=== PATIENT | female | born 1990 | race Caucasian/White ===

== ENCOUNTER 2016-09-26 08:57 | Emergency (ER) | payer MEDICAID ==
[~2016-09-26] VITALS: Wt 72.7 kg
[~2016-09-26 08:57] MED LIST: IBUP-1542 PO; NITR-58 PO; SELE118S2 TOP
[2016-09-26 09:04] VITALS: Wt 72.7 kg
--- NOTE | 2016-09-26 09:20 | ERD ---
ER Documentation Chief Complaint Date/Time DATE: 09/26/16 TIME: 09:17 Chief Complaint slamned r. ring finger in car door. uto bp x2 HPI Is a 26-year-old female who presents to the emergency department today complaining of right hand fourth finger pain after slamming in a car door earlier this morning. States that she had previous trauma on it one year ago and did something similar but never went to a doctor. She has not taken a medication for the pain. Denies any fevers or chills. ROS All systems reviewed and are negative except as per history of present illness. Medications Home Meds Active Scripts Naproxen* (Naprosyn*) 500 Mg Tablet, 500 MG PO BID Y for PAIN AND/OR INFLAMMATION, #30 TAB Prov:NASIMA KUHN PA-C 09/26/16 Tramadol HCl (Tramadol HCl) 50 Mg Tablet, 50 MG PO Q4 Y for PAIN, #20 TAB Prov:NASIMA KUHN PA-C 09/26/16 Selenium Sulfide* (Selenium Sulfide*) 118 Ml Shampoo, 1 APPLIC TOP DAILY for 7 Days, #120 ML Prov:GIULIA GRUBER POULTRY INSPECTOR 12/17/15 Nitrofurantoin Monohyd Macrocr* (Macrobid*) 100 Mg Capsr, 100 MG PO HS for 7 Days, CAP Prov:MANAGUELOD,GUSTABO P POULTRY INSPECTOR 11/22/15 Ibuprofen* (Motrin*) 600 Mg Tab, 600 MG PO Q6, #30 TAB Prov:MANAGUELOD,GUSTABO P POULTRY INSPECTOR 11/22/15 Allergies Allergies: Coded Allergies: No Known Allergy (Unverified , 11/22/15) PMhx/Soc History of Surgery: No Anesthesia Reaction: No Hx Neurological Disorder: No Hx Respiratory Disorders: No Hx Cardiac Disorders: No Hx Psychiatric Problems: No Hx Miscellaneous Medical Probl: No Hx Alcohol Use: No Hx Substance Use: No Hx Tobacco Use: No Physical Exam Vitals Vital Signs Date Time Temp Pulse Resp B/P Pulse Ox O2 Delivery O2 Flow Rate FiO2 09/26/16 09:04 98.0 72 20 99 Physical Exam Const: Crying Head: Atraumatic Eyes: Normal Conjunctiva ENT: Normal External Ears, Nose and Mouth. Neck: Full range of motion..~ No meningismus. Resp: Clear to auscultation bilaterally Cardio: Regular rate and rhythm, no murmurs Abd: Soft, non tender, non distended. Normal bowel sounds Skin: No petechiae or rashes MSK: Right hand and right finger with no obvious deformity. No effusion. Mild ecchymosis at DIP joint. Pulses 2+. Unable to assess range of motion secondary to pain. Distal neurovascularly intact. Unable to assess Refills patient was wearing nail greek Neur: Awake and alert Psych: Normal Mood and Affect Results 24 hrs Current Medications Medications (Trade) Dose Ordered Sig/Sincere Route PRN Reason Start Time Stop Time Status Last Admin Dose Admin Acetaminophen/ Hydrocodone Bitart (Fisher (5/325)) 1 tab ONCE ONCE PO 09/26/16 09:30 09/26/16 09:31 DC 09/26/16 09:23 DIAGNOSTIC IMAGING REPORT Patient: DONALD ALVARADO : 1990 Age: 26 Sex: F MR #: [id number] DOS: 09/26/16 0000 Ordering MD: NASIMA KUHN PA-C Location: [facility] Room/Bed: PROCEDURE: XR right fourth Finger. CLINICAL INDICATION: Pain. Trauma. TECHNIQUE: Three views of the finger are available for review. COMPARISON: None available FINDINGS: There is a mildly displaced fracture at the base of the fourth distal phalanx. No definite intra-articular extension is seen. Remainder of the bones appear intact. . IMPRESSION: 1. Mildly displaced fracture of the base of the fourth distal phalanx. RPTAT: QQ .Geremias Jonas MD, MD Date Time Electronically viewed and signed by .Geremias Jonas MD, MD on 09/26/2016 10:05 .L/ CC: NASIMA KUHN PA-C Procedures/[facility] This right-handed 26-year-old female who presents to the emergency department today complaining of right finger pain after slamming it in a car door this morning. Patient had reported previous trauma with no previous x-ray done 1 year ago. Given today's trauma I did obtain images Per the radiology report images of the right hand fourth finger show a mildly displaced fracture of the base of the fourth distal phalanx. There is no intra- articular extension seen. Likely the source of the patient's pain. Patient is afebrile and otherwise well-appearing. Low suspicion for sepsis, cellulitis, deep space infection. Patient was given Fisher here in the emergency department. She will be given a prescription for tramadol and Naprosyn for home. patient was placed in a metal splint. At this time the patient is stable for discharge and outpatient management. Patient should follow up with their PCP in the next 1-2 days for referral to head orthopedic team physician. She was given a list of resources for [facility] as well peer. They may return to the emergency department sooner for any persistent or worsening of symptoms. Patient understood and agreed with the plan. Departure Diagnosis: Primary Impression: Finger fracture, right Encounter type: initial encounter Fracture type: closed Qualified Code: S62.609A - Finger fracture, right, closed, initial encounter Condition: Fair NASIMA KUHN PA-C Sep 26, 2016 09:20
[2016-09-26] MEDS ORDERED: HYDROCODONE/APAP (5/325) TAB PO ONE (09:30)
--- NOTE | 2016-09-26 10:06 | RADRPT ---
PROCEDURE: XR right fourth Finger. CLINICAL INDICATION: Pain. Trauma. TECHNIQUE: Three views of the finger are available for review. COMPARISON: None available FINDINGS: There is a mildly displaced fracture at the base of the fourth distal phalanx. No definite intra-ar ticular extension is seen. Remainder of the bones appear intact. . IMPRESSION: 1. Mildly displaced fracture of the base of the fourth distal phalanx. RPTAT: QQ .Geremias Jonas MD, MD Date Time Electronically viewed and signed by .Geremias Jonas MD, on 09/26/2016 10:05 .L/
[2016-09-26] MEDS ORDERED: TRAM50TA2 PO (10:42)
[2016-09-26] MEDS ORDERED: NAPR-260 PO (10:43)
== END 2016-09-26 10:50 | disposition home or self-care (01) ==
LOC: FTE 08:57
DX: S62.634A Displaced fracture of distal phalanx of right ring finger, initial encounter for closed fracture (principal); W23.1XXA Caught, crushed, jammed, or pinched between stationary objects, initial encounter; Y92.9 Unspecified place or not applicable
CPT/HCPCS: 29130; 73140; Z7502; Z7610

== ENCOUNTER 2016-12-05 13:08 | Emergency (ER) | END 2016-12-05 15:57 | disposition home or self-care (01) | DX: N30.01 Acute cystitis with hematuria (principal) | CPT/HCPCS: 81003; Z7502; Z7610 ==

== ENCOUNTER 2017-02-10 09:36 | Emergency (ER) | payer MEDICAID ==
[~2017-02-10] VITALS: Ht 157.5 cm; Wt 89.0 kg
[~2017-02-10 09:36] MED LIST changes: +ACET500C5 PO; +NAPR-260 PO; +ONDA4TAB14 PO; +TRAM50TA2 PO
[2017-02-10 09:45] VITALS: Ht 157.5 cm; Wt 89.0 kg
[2017-02-10] MEDS ORDERED: ACETAMINOPHEN 325 MG TAB PO STA (11:23)
[2017-02-10 11:39] LABS: URINE BLOOD (Dip) POC Negative (NEGATIVE)
[2017-02-10 12:13] LABS: BASOPHILS % 0.5 % (0.0-2.0); EOSINOPHILS % 0.5 % (0.0-7.0); HEMATOCRIT 39.1 % (37.0-47.0); HEMOGLOBIN 13.3 g/dl (12.0-16.0); LYMPHOCYTES # 2.1 10^3/ul (0.8-2.9); LYMPHOCYTES % 26.2 % (15.0-51.0); MEAN CORPUSCULAR HEMOGLOBIN 31.4 pg (29.0-33.0); MEAN CORPUSCULAR VOLUME 92.2 fl (82.0-101.0); MONOCYTE # 0.3 10^3/ul (0.3-0.9); MONOCYTES % 4.1 % (0.0-11.0); NEUTROPHIL # 5.6 10^3/ul (1.6-7.5); NEUTROPHILS % 68.5 % (39.0-77.0); PLATELET COUNT 262 10^3/UL (140-415); RED BLOOD COUNT 4.24 10^6/ul (4.20-5.40); RED CELL DISTRIBUTION WIDTH 12.5 % (11.5-14.5); WHITE BLOOD COUNT 8.1 10^3/ul (4.8-10.8)
--- NOTE | 2017-02-10 12:32 | RADRPT ---
PROCEDURE: OBSTETRICAL ULTRASOUND WITH ENDOVAGINAL IMAGES CLINICAL INDICATION: Vaginal Bleed () TECHNIQUE: Multiple sonographic images of the pelvis were obtained utilizing a transabdominal and endovaginal technique. The images were reviewed on a PACS workstation. COMPARISON: None. FINDINGS: The uterus measures 7.2 x 5.0 x 6.2 cm. There is a single intrauterine with mean sac diameter of 1.76 cm and crown-rump length of 0.37 cm which is consistent with a gestational age of 6 weeks, 3 days . The estimated date of delivery by ultrasound is 10/03/2017 . No heart tones are detected. There is a hypoechoic and hypovascular crescentic lesion adjacent to the gestational sac measuring u p to 1.6 cm consistent with a subchorionic hemorrhage. Bilateral ovaries are not visualized. An ectopic/pelvic kidney is identified in the left adnexa tan suring up to 9.2 cm. No hydronephrosis is identified in this kidney. No significant pelvic free fluid is identified. IMPRESSION: An intrauterine gestational sac is identified with a pole which would be consistent with a ges tational age of 6 weeks, 3 days. No heart tones are detected. Findings may be due to a viable intrauterine although early demise and ectopic are not entirely excluded. Short-term follow-up ultrasound and serial Beta HCG measurements are recommended for further evaluat ion. Bilateral ovaries are not visualized although an ectopic/pelvic kidney is identified in the left adn exa. RPTAT: EE Physician Bernice Date Time Electronically viewed and signed by Physician Bernice on 02/10/2017 12:31 /
[2017-02-10 13:46] VITALS: BP 121/82; PULSE 99; RESP 18; TEMP 98.7
--- NOTE | 2017-02-10 14:40 | ERD ---
ER Documentation Chief Complaint Chief Complaint left pelvic pain, balbuena, normal uz last week, due date 09/16/17 HPI This is a 26-year-old female presenting to the emergency department for left- sided pelvic pain while . Patient states she is about 6-8 weeks with last menstrual period sometime in November. Patient denies any vaginal bleeding or discharge. Patient states she has left-sided pelvic pain and some suprapubic tenderness. Patient rates pain 8/10 and feels sharp. Pain does not radiate. No back or flank pain. No nausea or vomiting. No diarrhea or constipation. Patient went to her clinic, [facility] last week and was told that she has a normal ultrasound. Patient did not take anything at home for pain. ROS All systems reviewed and are negative except as per history of present illness. Medications Home Meds Active Scripts Ondansetron (Ondansetron Odt) 4 Mg Tab.rapdis, 4 MG PO Q6H Y for NAUSEA AND/OR VOMITING, #10 TAB Prov:KELLY REGALADO PA-C 12/05/16 Acetaminophen* (Tylophen*) 500 Mg Capsule, 1 CAP PO Q6H Y for PAIN AND OR ELEVATED TEMP, #20 CAP Prov:KELLY REGALADOC 12/05/16 Nitrofurantoin Monohyd Macrocr* (Macrobid*) 100 Mg Capsr, 100 MG PO BID for 5 Days, CAP Prov:KELLY REGALADO PA-C 12/05/16 Naproxen* (Naprosyn*) 500 Mg Tablet, 500 MG PO BID Y for PAIN AND/OR INFLAMMATION, #30 TAB Prov:NASIMA KUHN PA-C 09/26/16 Tramadol HCl (Tramadol HCl) 50 Mg Tablet, 50 MG PO Q4 Y for PAIN, #20 TAB Prov:NASIMA KUHNC 09/26/16 Selenium Sulfide* (Selenium Sulfide*) 118 Ml Shampoo, 1 APPLIC TOP DAILY for 7 Days, #120 ML Prov:GIULIA GRUBER MANAGER OF ADMINISTRATION 12/17/15 Nitrofurantoin Monohyd Macrocr* (Macrobid*) 100 Mg Capsr, 100 MG PO HS for 7 Days, CAP Prov:GUSTABO SILVEIRA MANAGER OF ADMINISTRATION 11/22/15 Ibuprofen* (Motrin*) 600 Mg Tab, 600 MG PO Q6, #30 TAB Prov:GUSTABO SILVEIRA P MANAGER OF ADMINISTRATION 11/22/15 Allergies Allergies: Coded Allergies: No Known Allergy (Unverified , 12/05/16) PMhx/Soc Medical and Surgical Hx: pt denies Medical Hx, pt denies Surgical Hx History of Surgery: No Anesthesia Reaction: No Hx Neurological Disorder: No Hx Respiratory Disorders: No Hx Cardiac Disorders: No Hx Psychiatric Problems: No Hx Miscellaneous Medical Probl: No Hx Alcohol Use: No Hx Substance Use: No Hx Tobacco Use: No Smoking Status: Never smoker Physical Exam Vitals Vital Signs Date Time Temp Pulse Resp B/P Pulse Ox O2 Delivery O2 Flow Rate FiO2 02/10/17 13:46 98.7 99 18 121/82 100 Room Air 02/10/17 09:45 97.9 88 18 123/66 100 Physical Exam Const: No acute distress, alert Head: Atraumatic Eyes: Normal Conjunctiva ENT: Normal External Ears, Nose and Mouth. Neck: Full range of motion..~ No meningismus. Resp: Clear to auscultation bilaterally Cardio: Regular rate and rhythm, no murmurs Abd: Soft, suprapubic tenderness, non distended. Normal bowel sounds Skin: No petechiae or rashes Back: No midline or flank tenderness. No CVA tenderness. Ext: No cyanosis, or edema Neur: Awake and alert Psych: Normal Mood and Affect Result Diagram: 02/10/17 1130 Results 24 hrs Laboratory Tests Test 02/10/17 11:30 02/10/17 11:38 White Blood Count 8.110^3/ul Red Blood Count 4.2410^6/ul Hemoglobin 13.3g/dl Hematocrit 39.1% Mean Corpuscular Volume 92.2fl Mean Corpuscular Hemoglobin 31.4pg Mean Corpuscular Hemoglobin Concent 34.0g/dl Red Cell Distribution Width 12.5% Platelet Count 53521^3/UL Mean Platelet Volume 10.0fl Neutrophils % 68.5% Lymphocytes % 26.2% Monocytes % 4.1% Eosinophils % 0.5% Basophils % 0.5% Nucleated Red Blood Cells % 0.0/100WBC Neutrophils # 5.610^3/ul Lymphocytes # 2.110^3/ul Monocytes # 0.310^3/ul Eosinophils # 0.010^3/ul Basophils # 0.010^3/ul Nucleated Red Blood Cells # 0.010^3/ul Beta HCG, Quantitative 30811.0mIU/ml Bedside Urine pH (LAB) 5.5 Bedside Urine Protein (LAB) Negative Bedside Urine Glucose (UA) Negative Bedside Urine Ketones (LAB) Negative Bedside Urine Blood Negative Bedside Urine Nitrite (LAB) Negative Bedside Urine Leukocyte Esterase (L Negative Current Medications Medications (Trade) Dose Ordered Sig/Sincere Route PRN Reason Start Time Stop Time Status Last Admin Dose Admin Acetaminophen (Tylenol Tab) 650 mg ONCE STAT PO 02/10/17 11:23 02/10/17 11:24 DC 02/10/17 11:36 Procedures/[facility] [place] [address] Radiology Main Line: [phone] DIAGNOSTIC IMAGING REPORT Patient: DONALD ALVARADO : 1990 Age: 26 Sex: F MR #: [id number] DOS: 02/10/17 1123 Ordering MD: JEFFY WHITE NP Location: [facility] Room/Bed: PROCEDURE: OBSTETRICAL ULTRASOUND WITH ENDOVAGINAL IMAGES CLINICAL INDICATION: Vaginal Bleed () TECHNIQUE: Multiple sonographic images of the pelvis were obtained utilizing a transabdominal and endovaginal technique. The images were reviewed on a PACS workstation. COMPARISON: None. FINDINGS: The uterus measures 7.2 x 5.0 x 6.2 cm. There is a single intrauterine with mean sac diameter of 1.76 cm and crown-rump length of 0.37 cm which is consistent with a gestational age of 6 weeks, 3 days . The estimated date of delivery by ultrasound is 10/03/2017 . No heart tones are detected. There is a hypoechoic and hypovascular crescentic lesion adjacent to the gestational sac measuring up to 1.6 cm consistent with a subchorionic hemorrhage. Bilateral ovaries are not visualized. An ectopic/pelvic kidney is identified in the left adnexa measuring up to 9.2 cm. No hydronephrosis is identified in this kidney. No significant pelvic free fluid is identified. IMPRESSION: An intrauterine gestational sac is identified with a pole which would be consistent with a gestational age of 6 weeks, 3 days. No heart tones are detected. Findings may be due to a viable intrauterine although early demise and ectopic are not entirely excluded. Short-term follow- up ultrasound and serial Beta HCG measurements are recommended for further evaluation. Bilateral ovaries are not visualized although an ectopic/pelvic kidney is identified in the left adnexa. MDM: This is a 26-year-old female presenting to emerge department for left- sided pelvic pain 2 days. Patient's last menstrual period was sometime in November. Patient believes she is about 6-8 weeks . Patient denies vaginal bleeding or vaginal discharge. CBC shows no significant anemia or infection. Beta-hCG is 20,298.0. Urine dip is negative for infection. OB ultrasound reviewed by radiologist as an intrauterine gestational sac is identified with a pole which would be consistent with a gestational age of 6 weeks, 3 days. No heart tones are detected. Findings may be due to a viable intrauterine although early demise and ectopic are not entirely excluded. Short-term follow-up ultrasound and serial Beta HCG measurements are recommended for further evaluation. Bilateral ovaries are not visualized although an ectopic/pelvic kidney is identified in the left adnexa. Spoke with radiologist Dr. Cody Loredo to clarify ultrasound results. Spoke with labor's on-call, Dr. Gonzalez and discussed findings with him. We agree that patient is appropriate for outpatient management and she will return to the ED in 2 days for recheck of beta-hCG and ultrasound. Discussed this with the patient. Patient verbalized understanding. Differential diagnosis includes but not limited to ectopic , threatened , missed , normal , subchorionic hemorrhage , ruptured ovarian cyst, UTI or pyelonephritis. Instructed patient to return in 2 days for repeat lab work and ultrasound. Patient is appropriate for outpatient management. Instructed patient to follow- up here in the ED in 2 days. Return to ED sooner for any high fever, chest pain , difficulty breathing, shortness breath, wheezing, vomiting, diarrhea, abdominal pain or any new or worsening symptoms. Patient verbalizes understanding. All questions answered at discharge. Disclaimer: Inadvertent spelling and grammatical errors are likely due to EHR/ dictation software use and do not reflect on the overall quality of patient care. Also, please note that the electronic time recorded on this note does not necessarily reflect the actual time of the patient encounter. Departure Diagnosis: Primary Impression: Pelvic pain complicating Trimester: first trimester Qualified Code: O26.891 - Pelvic pain affecting in first trimester, antepartum Condition: Stable Patient Instructions: Pelvic Pain In : Unclear (2-3 Trimester) Referrals: [facility] YOU HAVE RECEIVED A MEDICAL SCREENING EXAM AND THE RESULTS INDICATE THAT YOU DO NOT HAVE A CONDITION THAT REQUIRES URGENT TREATMENT IN THE EMERGENCY DEPARTMENT. FURTHER EVALUATION AND TREATMENT OF YOUR CONDITION CAN WAIT UNTIL YOU ARE SEEN IN YOUR DOCTORS OFFICE WITHIN THE NEXT 1-2 DAYS. IT IS YOUR RESPONSIBILITY TO MAKE AN APPOINTMENT FOR FOLOW-UP CARE. IF YOU HAVE A PRIMARY DOCTOR --you should call your primary doctor and schedule an appointment IF YOU DO NOT HAVE A PRIMARY DOCTOR YOU CAN CALL OUR PHYSICIAN REFERRAL HOTLINE AT IF YOU CAN NOT AFFORD TO SEE A PHYSICIAN YOU CAN CHOSE FROM THE FOLLOWING [facility][1] [address] [facility] [address] [facility] [address] [facility] [address] [address] [facility] [address] [facility] [address] [facility]. [facility] [address] [facility]. [facility] YOU HAVE RECEIVED A MEDICAL SCREENING EXAM AND THE RESULTS INDICATE THAT YOU DO NOT HAVE A CONDITION THAT REQUIRES URGENT TREATMENT IN THE EMERGENCY DEPARTMENT. FURTHER EVALUATION AND TREATMENT OF YOUR CONDITION CAN WAIT UNTIL YOU ARE SEEN IN YOUR DOCTORS OFFICE WITHIN THE NEXT 1-2 DAYS. IT IS YOUR RESPONSIBILITY TO MAKE AN APPOINTMENT FOR FOLOW-UP CARE. IF YOU HAVE A PRIMARY DOCTOR --you should call your primary doctor and schedule and appointment IF YOU DO NOT HAVE A PRIMARY DOCTOR YOU CAN CALL OUR PHYSICIAN REFERRAL HOTLINE AT . IF YOU CAN NOT AFFORD TO SEE A PHYSICIAN YOU CAN CHOSE FROM THE FOLLOWING [facility] INSTITUTIONS: [facility] [address] [place] [address] [facility] [address] [place] [address] [facility] [address] [place] [address] TERRESTRIAL ECOLOGIST [place] [address] [facility] [address] [place] [address] OFFICE FAX , [place] [address] [place] [address] DR. LOJAFORMERLY [facility] [address] [place] [address] [address] GONZALEZ, [facility] [address], [address], [place] [address] [address] [facility] [address] [facility] [place] [address] [facility] [address] [place] [address] [address] [facility] [address] [address] KHAN, [place] [address], [place] [address] [address] RODRIGUEZ, [place] [address] [facility] [place] [address] [address] STEWART, [facility] [address] [place], [place] [id number] Additional Instructions: Return to this facility in 2 day for recheck of ultrasound and lab work. Return to ED for any high fever, chest pain, difficulty breathing, shortness breath, wheezing, vomiting, diarrhea, abdominal pain or any new or worsening symptoms. JEFFY CLEMENTE NP Feb 10, 2017 14:40
== END 2017-02-10 14:45 | disposition home or self-care (01) ==
LOC: FTE 09:36
DX: O26.891 Other specified pregnancy related conditions, first trimester (principal); R10.2 Pelvic and perineal pain; Z3A.01 Less than 8 weeks gestation of pregnancy
CPT/HCPCS: 36415; 76801; 76817; 81003; 84702; 85025; 86900; 86901; J2790; Z7502; Z7610

== ENCOUNTER 2017-02-12 09:48 | Emergency (ER) | payer MEDICAID ==
[~2017-02-12] VITALS: Ht 162.6 cm; Wt 84.5 kg
[2017-02-12 09:51] VITALS: Ht 162.6 cm; Wt 84.5 kg
[2017-02-12 12:19] LABS: ADD UMIC NO; UR ASCORBIC ACID NEGATIVE (NEGATIVE); UR BILIRUBIN (Dip) NEGATIVE (NEGATIVE); UR BLOOD (Dip) NEGATIVE (NEGATIVE); UR CLARITY CLEAR (CLEAR); UR COLOR YELLOW (YELLOW); UR GLUCOSE (Dip) NEGATIVE (NEGATIVE); UR KETONES (Dip) NEGATIVE (NEGATIVE); UR LEUKOCYTE ESTERASE (Dip) NEGATIVE Leu/ul (NEGATIVE); UR NITRITE (Dip) NEGATIVE (NEGATIVE); UR SPECIFIC GRAVITY (Dip) 1.016 (1.003-1.030); UR TOTAL PROTEIN (Dip) NEGATIVE (NEGATIVE); UR UROBILINOGEN (Dip) NEGATIVE (NEGATIVE)
[2017-02-12 12:28] LABS: BASOPHILS % 0.4 % (0.0-2.0); EOSINOPHILS # 0.1 10^3/ul (0.0-0.5); EOSINOPHILS % 0.6 % (0.0-7.0); HEMATOCRIT 39.5 % (37.0-47.0); HEMOGLOBIN 13.6 g/dl (12.0-16.0); LYMPHOCYTES # 2.4 10^3/ul (0.8-2.9); LYMPHOCYTES % 23.5 % (15.0-51.0); MEAN CORPUSCULAR HEMOGLOBIN 32.1 pg (29.0-33.0); MEAN CORPUSCULAR HGB CONC 34.4 g/dl (32.0-37.0); MEAN CORPUSCULAR VOLUME 93.2 fl (82.0-101.0); MEAN PLATELET VOLUME 9.7 fl (7.4-10.4); MONOCYTE # 0.5 10^3/ul (0.3-0.9); MONOCYTES % 4.4 % (0.0-11.0); NEUTROPHIL # 7.3 10^3/ul (1.6-7.5); NEUTROPHILS % 70.6 % (39.0-77.0); PLATELET COUNT 263 10^3/UL (140-415); RED BLOOD COUNT 4.24 10^6/ul (4.20-5.40); RED CELL DISTRIBUTION WIDTH 12.2 % (11.5-14.5); WHITE BLOOD COUNT 10.3 10^3/ul (4.8-10.8)
--- NOTE | 2017-02-12 12:56 | RADRPT ---
PROCEDURE: OB Ultrasound. CLINICAL INDICATION: Positive test. Vaginal bleeding. TECHNIQUE: Ultrasound of the pelvis was performed with transabdominal and transvaginal sonography in the axial and sagittal planes. COMPARISON: 02/10/2017. FINDINGS: There is a single irregular intrauterine gestational sac. pole is present. Yolk sac is not vi sualized. There is no heart motion. This indicates demise. Rex-rump length is 0.53 cm. Mean sac diameter is 1.93 cm. Menstrual age by ultrasound dates is 6 weeks 4 days. The right ovary appears normal measuring 3.1 x 1.6 x 2.0 cm. The left ovary is not visualized. Color Doppler and pulsed Doppler sonography demonstrate normal flow to the right ovary. There is no other pelvic mass or free fluid. IMPRESSION: 1. demise at 6 weeks 4 days menstrual age by ultrasound dates. RPTAT: QQ .Celestino Garcia MD, MD Date Time Electronically viewed and signed by .Celestino Garcia MD, on 02/12/2017 12:55 .R/
--- NOTE | 2017-02-12 13:38 | ERD ---
ER Documentation Chief Complaint Chief Complaint pt bib self with c/o left sided pelvic pain, approx 6-8wks preg, no bleedin HPI This is a 26-year-old female presents to the ER with left-sided pelvic pain which started 3 days ago. Patient is currently 6-8 weeks , denies any vaginal bleeding. She does not have any urinary frequency or dysuria. She was seen here 2 days ago and told to return for follow-up today. A0. ROS 12 point review of systems was done, all negative except per HPI. Medications Home Meds Active Scripts Ondansetron (Ondansetron Odt) 4 Mg Tab.rapdis, 4 MG PO Q6H Y for NAUSEA AND/OR VOMITING, #10 TAB Prov:KELLY REGALADO PA-C 12/05/16 Acetaminophen* (Tylophen*) 500 Mg Capsule, 1 CAP PO Q6H Y for PAIN AND OR ELEVATED TEMP, #20 CAP Prov:KELLY REGALADO PA-C 12/05/16 Nitrofurantoin Monohyd Macrocr* (Macrobid*) 100 Mg Capsr, 100 MG PO BID for 5 Days, CAP Prov:KELLY REGALADO PA-C 12/05/16 Naproxen* (Naprosyn*) 500 Mg Tablet, 500 MG PO BID Y for PAIN AND/OR INFLAMMATION, #30 TAB Prov:NASIMA KUHN PA-C 09/26/16 Tramadol HCl (Tramadol HCl) 50 Mg Tablet, 50 MG PO Q4 Y for PAIN, #20 TAB Prov:NASIMA KUHN PA-C 09/26/16 Selenium Sulfide* (Selenium Sulfide*) 118 Ml Shampoo, 1 APPLIC TOP DAILY for 7 Days, #120 ML Prov:GIULIA GR[employer]BER [employer]NAGER 12/17/15 Nitrofurantoin Monohyd Macrocr* (Macrobid*) 100 Mg Capsr, 100 MG PO HS for 7 Days, CAP Prov:MANAGUELOD,GUSTABO P MANUFA[employer]URING QUALITY MANAGER 11/22/15 Ibuprofen* (Motrin*) 600 Mg Tab, 600 MG PO Q6, #30 TAB Prov:MANAGUELOD,GUSTABO P MANUFA[employer]URING QUALITY MANAGER 11/22/15 Allergies Allergies: Coded Allergies: No Known Allergy (Unverified , 12/05/16) PMhx/Soc History of Surgery: No Anesthesia Reaction: No Hx Neurological Disorder: No Hx Respiratory Disorders: No Hx Cardiac Disorders: No Hx Psychiatric Problems: No Hx Miscellaneous Medical Probl: No Hx Alcohol Use: No Hx Substance Use: No Hx Tobacco Use: No Physical Exam Vitals Vital Signs Date Time Temp Pulse Resp B/P Pulse Ox O2 Delivery O2 Flow Rate FiO2 02/12/17 09:51 98.2 73 16 134/72 100 Physical Exam GENERAL: The patient is well developed and appropriate for usual state of health , in no apparent distress. HEENT: Atraumatic. CHEST: Clear to auscultation bilaterally. There are no rales, wheezes or rhonchi. HEART: Regular rate and rhythm. No murmurs, clicks, rubs or gallops. ABDOMEN: Soft, nontender and nondistended. Good bowel sounds. No rebound or guarding. No gross peritonitis. No gross organomegaly or masses. No Manuel sign or McBurney point tenderness. BACK: No midline or flank tenderness. NEURO: Alert and oriented. Result Diagram: 02/12/17 1215 Results 24 hrs Laboratory Tests Test 02/12/17 12:00 02/12/17 12:15 Urine Color YELLOW Urine Clarity CLEAR Urine pH 5.0 Urine Specific [place] 1.016 Urine Ketones NEGATIVEmg/dL Urine Nitrite NEGATIVEmg/dL Urine Bilirubin NEGATIVEmg/dL Urine Urobilinogen NEGATIVEmg/dL Urine Leukocyte Esterase NEGATIVELeu/ul Urine Hemoglobin NEGATIVEmg/dL Urine Glucose NEGATIVEmg/dL Urine Total Protein NEGATIVEmg/dl White Blood Count 10.310^3/ul Red Blood Count 4.2410^6/ul Hemoglobin 13.6g/dl Hematocrit 39.5% Mean Corpuscular Volume 93.2fl Mean Corpuscular Hemoglobin 32.1pg Mean Corpuscular Hemoglobin Concent 34.4g/dl Red Cell Distribution Width 12.2% Platelet Count 81881^3/UL Mean Platelet Volume 9.7fl Neutrophils % 70.6% Lymphocytes % 23.5% Monocytes % 4.4% Eosinophils % 0.6% Basophils % 0.4% Nucleated Red Blood Cells % 0.0/100WBC Neutrophils # 7.310^3/ul Lymphocytes # 2.410^3/ul Monocytes # 0.510^3/ul Eosinophils # 0.110^3/ul Basophils # 0.010^3/ul Nucleated Red Blood Cells # 0.010^3/ul Beta HCG, Quantitative 56952.0mIU/ml [place] [id number] Radiology Main Line: [phone] DIAGNOSTIC IMAGING REPORT Patient: DONALD ALVARADO : 1990 Age: 26 Sex: F MR #: [id number] DOS: 02/12/17 1203 Ordering MD: PRISCILA RAMÍREZ PA-C Location: [facility] Room/Bed: PROCEDURE: OB Ultrasound. CLINICAL INDICATION: Positive test. Vaginal bleeding. TECHNIQUE: Ultrasound of the pelvis was performed with transabdominal and transvaginal sonography in the axial and sagittal planes. COMPARISON: 02/10/2017. FINDINGS: There is a single irregular intrauterine gestational sac. pole is present. Yolk sac is not visualized. There is no heart motion. This indicates demise. [place]-rump length is 0.53 cm. Mean sac diameter is 1.93 cm. Menstrual age by ultrasound dates is 6 weeks 4 days. The right ovary appears normal measuring 3.1 x 1.6 x 2.0 cm. The left ovary is not visualized. Color Doppler and pulsed Doppler sonography demonstrate normal flow to the right ovary. There is no other pelvic mass or free fluid. IMPRESSION: 1. demise at 6 weeks 4 days menstrual age by ultrasound dates. RPTAT: QQ .Celestino Garcia MD, MD Date Time Electronically viewed and signed by .Celestino Garcia MD, on 02/12/2017 12:55 .R/ CC: PRISCILA RAMÍREZ Procedures/MDM Differential diagnosis: Threatened , missed , incomplete , ectopic , molar , UTI, pyelonephritis. Ultrasound was repeated, unfortunately there is to be a demise. Is not bleeding, patient will likely need a D&C on outpatient basis. Patient follow-up with her OB within 48 hours or return to ER sooner if symptoms worsen. My medical decision making was shared with the patient she understands and agrees with plan. Departure Diagnosis: Primary Impression: Miscarriage Condition: Stable PRISCILA RAMÍREZ Feb 12, 2017 13:38
[2017-02-12 13:57] VITALS: BP 124/74; PULSE 74; RESP 16; TEMP 98.1
== END 2017-02-12 13:58 | disposition home or self-care (01) ==
LOC: FTE 09:48
DX: O03.9 Complete or unspecified spontaneous abortion without complication (principal); R10.2 Pelvic and perineal pain
CPT/HCPCS: 76801; 76817; 81003; 84702; 85025; Z7502

== ENCOUNTER 2017-06-05 17:19 | Emergency (ER) | END 2017-06-05 22:26 | disposition home or self-care (01) ==